=== PATIENT | female | born 1995 | race American Indian/Alaskan Native ===

== ENCOUNTER 2017-09-11 22:53 | Emergency (ER) | payer OTHER ==
[2017-09-11 23:44] VITALS: BP 117/76
[2017-09-12 00:30] LABS: Basophils % (Auto) 0.4 % (0.0-1.8); Eosinophils # (Auto) 0.1 K/mm3 (0.0-0.4); Eosinophils % (Auto) 1.1 % (0.0-4.3); Hemoglobin 14.4 gm/dl (10.1-14.3); Lymphocytes # (Auto) 2.3 K/mm3 (1.2-5.4); Lymphocytes % (Auto) 23.9 % (13.4-35.0); Mean Corpuscular HGB Conc 33 % (30-34); Mean Corpuscular Hemoglobin 30 pg (28-32); Mean Corpuscular Volume 91 fl (79-97); Monocytes # (Auto) 0.5 K/mm3 (0.0-0.8); Monocytes % (Auto) 5.1 % (0.0-7.3); Platelet Count 295 K/mm3 (140-440); Red Blood Count 4.85 M/mm3 (3.65-5.03); Red Cell Distribution Width 12.6 % (13.2-15.2)
[2017-09-12 00:48] LABS: BUN/Creatinine Ratio 24; Blood Urea Nitrogen 12 mg/dL (7-17); Calcium 8.8 mg/dL (8.4-10.2); Hemolysis Index 26
[2017-09-12 00:58] LABS: Bilirubin,Urine NEG (Negative); Blood,Urine SM (Negative); Color,Urine Yellow (Yellow); Mucus,Urine FEW /HPF; Protein,Urine <15 mg/dL mg/dL (Negative); Urobilinogen,Urine < 2.0 mg/dL (<2.0)
[2017-09-12] MEDS ORDERED: REGLAN IV ONE (01:02)
[2017-09-12] MEDS ORDERED: BENADRYL IV ONE (01:02)
[2017-09-12 01:04] LABS: Amphetamine Screen,Urine PRESUMPTIVE NEGATIVE; Benzodiazepines Screen,Urine PRESUMPTIVE NEGATIVE; Cannabinoid Screen,Urine PRESUMPTIVE NEGATIVE; Cocaine Screen,Urine PRESUMPTIVE NEGATIVE; Methadone Screen,Urine PRESUMPTIVE NEGATIVE; Opiate Screen,Urine PRESUMPTIVE NEGATIVE
--- NOTE | 2017-09-12 01:07 | Emergency Department Report ---
History of Present Illness - General Chief Complaint: Overdose Stated Complaint: OD Time Seen by Provider: 09/12/17 00:16 Source: patient Mode of arrival: Ambulatory Limitations: No Limitations - History of Present Illness Initial Comments: pt. says she started with a headache 2 days at about 10pm and since then as accidental taken about 12 pills of tylenol 500mg and the last dose at 5 pm yesterday. she says she still as a headache on the right temporal area of moderate intensity non radaiting with no relieving factor and aggrav. with noise and light.she took motrin 800mg at about 7 pm yesterday and as been nauseous and vomiting and had some epgastric pain Complaint: accidental overdose -: Gradual Context: Accidental Overdose: medication error Associated Symptoms: headaches Treatments Prior to Arrival: none - Related Data Allergies Allergy/AdvReac Type Severity Reaction Status Date / Time nut - unspecified Allergy Anaphylaxis Verified 09/11/17 23:36 ED Review of Systems ROS: Stated complaint: OD Other details as noted in HPI Comment: All other systems reviewed and negative ED Past Medical Hx - Past Medical History Previous Medical History?: Yes Hx Asthma: Yes - Surgical History Past Surgical History?: No - Social History Smoking Status: Current Every Day Smoker Substance Use Type: Alcohol ED Physical Exam - General Limitations: No Limitations General appearance: alert, in no apparent distress - Head Head exam: Present: atraumatic, normocephalic - Eye Eye exam: Present: normal appearance. Absent: PERRL - ENT ENT exam: Present: mucous membranes moist - Neck Neck exam: Present: normal inspection - Respiratory Respiratory exam: Present: normal lung sounds bilaterally. Absent: respiratory distress - Cardiovascular Cardiovascular Exam: Present: regular rate, normal rhythm. Absent: systolic murmur, diastolic murmur, rubs, gallop - GI/Abdominal GI/Abdominal exam: Present: soft, normal bowel sounds. Absent: distended, tenderness - Rectal Rectal exam: Present: deferred - Extremities Exam Extremities exam: Present: normal inspection - Back Exam Back exam: Present: normal inspection, full ROM - Neurological Exam Neurological exam: Present: alert, oriented X3 - Psychiatric Psychiatric exam: Present: normal affect, normal mood - Skin Skin exam: Present: warm, dry, intact, normal color. Absent: rash ED Course Vital Signs 09/11/17 23:36 Temperature 98.5 F Pulse Rate 65 Respiratory 16 Rate Blood Pressure 117/76 O2 Sat by Pulse 100 Oximetry - Reevaluation(s) Reevaluation #1: 09/12/17 01:35 headache is better ED Medical Decision Making - Lab Data Result diagrams: 09/11/17 23:57 09/11/17 23:57 Critical care attestation.: If time is entered above; I have spent that time in minutes in the direct care of this critically ill patient, excluding procedure time. ED Disposition Clinical Impression: Unintentional Tylenol overdose, Headache Disposition: TO HOME OR SELFCARE Is pt being admited?: No Does the pt Need Aspirin: No Condition: Stable Instructions: Acute Headache (ED) Additional Instructions: the maximum safe dose in 24hrs of tylenol is 4grams avoiding exceeding that. Referrals: MOISES ECHOLS MD [Primary Care Provider] - 3-5 Days Time of Disposition: 01:35 Print Language: KINYARWANDA
[2017-09-12 01:32] LABS: Alanine Aminotransferase 38 units/L (7-56); Albumin 4.4 g/dL (3.9-5)
[2017-09-12 01:42] LABS: Bilirubin,Direct < 0.2 mg/dL (0-0.2)
== END 2017-09-12 02:24 | disposition home or self-care (01) ==
LOC: ED 22:53
DX: T39.1X1A Poisoning by 4-Aminophenol derivatives, accidental (unintentional), initial encounter (principal); R51 Headache; J45.909 Unspecified asthma, uncomplicated; F17.200 Nicotine dependence, unspecified, uncomplicated; Z91.018 Allergy to other foods; Y92.89 Other specified places as the place of occurrence of the external cause
CPT/HCPCS: 36415; 80048; 80074; 80307; 81001; 85025; 96374; 96375; 99283; G0480; J1200; J2765; J2920; 80320

== ENCOUNTER 2018-03-12 23:03 | Emergency (ER) | payer SELFPAY ==
[2018-03-13] MEDS ORDERED: BENADRYL IV ONE (02:54)
[2018-03-13] MEDS ORDERED: TORADOL IV ONE (02:54)
[2018-03-13] MEDS ORDERED: DECADRON IV ONE (02:54)
--- NOTE | 2018-03-13 03:08 | Emergency Department Report ---
ED Headache HPI - General Chief Complaint: Headache Stated Complaint: HEADACHE,BREATHING PROBLEMSC Time Seen by Provider: 03/13/18 02:54 - History of Present Illness Initial Comments: 22-year-old man female comes in for headache that she's had for one week. Patient reports sensitivity to light with nausea as well as shortness of breath. Patient states that Tylenol Excedrin Motrin has not helped with her headaches. Patient reports a past medical history of migraines and asthma. Patient reports she used her inhaler but thinks is outdated. Patient denies any wheezing. Timing/Duration: 1 week Quality: achy Head Injury Location: frontal Recent Head Trauma: no recent headache/trauma Modifying Factors: improves with: exposure to light Associated Symptoms: nausea/vomiting. denies: sinus infection, stiff neck, vision changes, weakness Allergies/Adverse Reactions: Allergies nut - unspecified Allergy (Verified 09/11/17 23:36) Anaphylaxis Home Medications: Ambulatory Orders ALBUTEROL Inhaler(NF) [VENTOLIN Inhaler(NF)] 1 puff IH Q4-6H #1 inha 03/13/18 Butalb/Acetamin/Caff 50-325-40 [Fioricet] 1 tab PO Q6HR PRN #12 tab 03/13/18 ED Review of Systems ROS: Stated complaint: HEADACHE,BREATHING PROBLEMSC Other details as noted in HPI Comment: All other systems reviewed and negative Eyes: other (photophobia) ENT: denies: ear pain, throat pain Respiratory: shortness of breath. denies: cough, wheezing Cardiovascular: denies: chest pain, palpitations Neurological: headache ED Past Medical Hx - Past Medical History Previous Medical History?: Yes Hx Headaches / Migraines: Yes Hx Asthma: Yes - Surgical History Past Surgical History?: No - Social History Smoking Status: Former Smoker Substance Use Type: None - Medications Home Medications: Home Medications Medication Instructions Recorded Confirmed Last Taken Type ALBUTEROL Inhaler(NF) [VENTOLIN 1 puff IH Q4-6H #1 inha 03/13/18 Unknown Rx Inhaler(NF)] Butalb/Acetamin/Caff 50-325-40 1 tab PO Q6HR PRN #12 tab 03/13/18 Unknown Rx [Fioricet] ED Physical Exam - General Limitations: No Limitations General appearance: alert, in no apparent distress - Head Head exam: Present: atraumatic, normocephalic - Eye Eye exam: Present: EOMI - ENT ENT exam: Present: mucous membranes moist - Respiratory Respiratory exam: Present: normal lung sounds bilaterally. Absent: respiratory distress - Expanded Neurological Exam Expanded Cranial nerves: EOM's Intact: Normal, Gag Reflex: Normal, Tongue Deviation: Normal, Nystagmus: Normal, Facial Sensation: Normal, Facial Palsy with Forehead Movement: Normal, Facial Palsy without Forehead Movement: Normal Cerebellar function: Finger to Nose: Normal, Heel to Carlson: Normal, Romberg: Normal Upper motor neuron: Yehuda Neglect: Normal, Pronator Drift: Normal, Babinski Sign : Normal, Sensory Extinction: Normal Sensory exam: Upper Extremity Light Touch: Normal, Upper Extremity Pin Prick: Normal, Upper Extremity Temperature: Normal, UE 2 Point Discrimination: Normal, Lower Extremity Light Touch: Normal, Lower Extremity Pin Prick: Normal Motor strength exam: RUE: 5, LUE: 5, RLE: 5, LLE: 5 Best Eye Response ([place]): (4) open spontaneously Best Motor Response ([place]): (6) obeys commands Best Verbal Response ([place]): (5) oriented [place] Total: 15 - Psychiatric Psychiatric exam: Present: normal affect, normal mood - Skin Skin exam: Present: warm, dry, intact, normal color. Absent: rash ED Course Vital Signs 03/12/18 23:20 Temperature 98.2 F Pulse Rate 68 Respiratory 14 Rate Blood Pressure 107/67 O2 Sat by Pulse 98 Oximetry ED Medical Decision Making - Medical Decision Making Patient has been evaluated by this provider in fast track. IV insertion IV Benadryl 25 mg, Toradol 15 mg IV, Reglan 10 mg IV and dexamethasone 4 mg Critical care attestation.: If time is entered above; I have spent that time in minutes in the direct care of this critically ill patient, excluding procedure time. ED Disposition Clinical Impression: Headache Qualifiers: Headache type: unspecified Headache chronicity pattern: acute headache Intractability: intractable Qualified Code(s): R51 - Headache Asthma Qualifiers: Asthma severity: unspecified severity Asthma persistence: unspecified Asthma complication type: unspecified Qualified Code(s): J45.909 - Unspecified asthma, uncomplicated Disposition: - TO HOME OR SELFCARE Is pt being admited?: No Does the pt Need Aspirin: No Condition: Stable Instructions: Asthma (ED), Migraine Headache (ED), Acute Headache (ED) Additional Instructions: Please take medication as prescribed. If her symptoms persist or gets worse please follow up with her primary care provider. Prescriptions: ALBUTEROL Inhaler(NF) [VENTOLIN Inhaler(NF)] 1 puff IH Q4-6H #1 inha Butalb/Acetamin/Caff 50-325-40 [Fioricet] 1 tab PO Q6HR PRN #12 tab PRN Reason: Headache Referrals: PRIMARY CARE, [Primary Care Provider] - 3-5 Days [facility] [Provider Group] - 3-5 Days Forms: Accompanied Note, Work/School Release Form(ED)
[2018-03-13] MEDS ORDERED: ZOFRAN IV ONE (03:40)
[2018-03-13] MEDS ORDERED: ZOFRAN ONE (03:42)
[2018-03-13 05:06] VITALS: BP 110/64
== END 2018-03-13 05:07 | disposition home or self-care (01) ==
LOC: ED 23:03
DX: J45.909 Unspecified asthma, uncomplicated (principal)
CPT/HCPCS: 96374; 96375; 99282; J1100; J1200; J1885; J2405